=== PATIENT | female | born 1950 | race Caucasian/White ===

== ENCOUNTER 2020-02-22 09:10 | Day surgery (SDC) | payer OTHER ==
[2020-02-20 17:12] VITALS: BMI 24.6
[2020-02-22] MEDS ORDERED: MIDAZOLAM HCL 2 MG/2 ML SINGLE DOSE VIAL ONE (11:02)
[2020-02-22] MEDS ORDERED: ONDANSETRON 4 MG/2 ML VIAL ONE ×2 (11:04→14:12)
[2020-02-22] MEDS ORDERED: LIDOCAINE HCL/PF 2% SDV 5ML VIAL ONE (11:04)
[2020-02-22] MEDS ORDERED: KETOROLAC TROMETHAMINE 30 MG/1 ML VIAL ONE (11:04)
[2020-02-22] MEDS ORDERED: PROPOFOL 20 ML ONE (11:04)
[2020-02-22] MEDS ORDERED: DEXAMETHASONE SOD PHOSPHATE 4 MG/1 ML VIAL ONE (11:04)
[2020-02-22] MEDS ORDERED: SUCCINYLCHOLINE CHLORIDE 200 MG/10 ML SYRINGE ONE (11:06)
[2020-02-22] MEDS ORDERED: ONDANSETRON 4 MG/2 ML VIAL IVPUSH PRN ×2 (11:13→13:51)
[2020-02-22] MEDS ORDERED: oxyCODONE HCL 5 MG TABLET PO PRN ×2 (11:13)
[2020-02-22] MEDS ORDERED: BUPIVACAINE HCL/PF 0.25% (2.5MG/ML) 10 ML VIAL ONE (11:14)
[2020-02-22] MEDS ORDERED: LACTATED RINGERS SOLUTION 1,000 ML IV SCH (11:15)
[2020-02-22] MEDS ORDERED: SEVOFLURANE 250 ML BTL ONE (12:10)
[2020-02-22] MEDS ORDERED: EPHEDRINE SULFATE/0.9% NACL/PF 50 MG/10 ML SYRINGE NR ONE (12:19)
[2020-02-22] MEDS ORDERED: BUPIVACAINE HCL/PF 0.25% (2.5MG/ML) 10 ML VIAL IJ ONE (13:38)
[2020-02-22] MEDS ORDERED: KETOROLAC TROMETHAMINE 30 MG/1 ML VIAL IVPUSH PRN (13:51)
[2020-02-22] MEDS ORDERED: DEXTROSE 5%-0.45% SALINE 1,000 ML IV SCH (14:00)
[2020-02-22] MEDS ORDERED: oxyCODONE HCL 5 MG TABLET ONE (15:34)
[2020-02-22] MEDS ORDERED: oxyCODONE HCL 5 MG TABLET PO ONE (15:35)
[2020-02-22 16:22] VITALS: BP 135/71; PULSE 78; TEMP 97.8
== END 2020-02-22 16:22 | disposition home or self-care (01) ==
LOC: FASU 09:10
PROVIDERS: ATTEND Surgery Surgical Oncology
PROC: 0HBU0ZZ Excision of Left Breast, Open Approach (ICD-10-PCS; principal; 2020-02-22 12:19)
DX: D05.12 Intraductal carcinoma in situ of left breast (principal)
CPT/HCPCS: 19281; 76098-TC-FY; 88307-TC; 94760

== ENCOUNTER 2020-03-05 10:18 | Day surgery (SDC) | payer OTHER ==
[2020-02-28 15:58] VITALS: BMI 24.6
[2020-03-05] MEDS ORDERED: MIDAZOLAM HCL 2 MG/2 ML SINGLE DOSE VIAL ONE (11:12)
[2020-03-05] MEDS ORDERED: PROPOFOL 20 ML ONE (11:12)
[2020-03-05] MEDS ORDERED: BUPIVACAINE HCL/PF 0.25% (2.5MG/ML) 10 ML VIAL ONE (11:41)
[2020-03-05] MEDS ORDERED: ISOSULFAN BLUE 50 MG/5 ML VIAL SQ ONE (11:41)
[2020-03-05] MEDS ORDERED: oxyCODONE HCL 5 MG TABLET PO PRN ×2 (13:10)
[2020-03-05] MEDS ORDERED: KETOROLAC TROMETHAMINE 30 MG/1 ML VIAL IVPUSH PRN ×2 (13:10→13:14)
[2020-03-05] MEDS ORDERED: ONDANSETRON 4 MG/2 ML VIAL IVPUSH PRN ×3 (13:10→13:14)
[2020-03-05] MEDS ORDERED: PROMETHAZINE HCL 25 MG/1 ML VIAL IVPUSH PRN (13:10)
[2020-03-05] MEDS ORDERED: DEXTROSE 5%-0.45% SALINE 1,000 ML IV SCH ×2 (13:15)
[2020-03-05 14:07] VITALS: TEMP 98
[2020-03-05 14:53] VITALS: BP 123/68; PULSE 64
== END 2020-03-05 14:53 | disposition home or self-care (01) ==
LOC: FASU 10:18
PROVIDERS: ATTEND Surgery Surgical Oncology
PROC: 07B60ZX Excision of Left Axillary Lymphatic, Open Approach, Diagnostic (ICD-10-PCS; principal; 2020-03-05 12:16)
DX: C50.812 Malignant neoplasm of overlapping sites of left female breast (principal); Z17.0 Estrogen receptor positive status [ER+]
CPT/HCPCS: 78195-TC; 88307-TC; 88342-TC; 94760; A9541